=== PATIENT | male | born 1945 | race Caucasian/White ===

== ENCOUNTER 2020-09-11 05:20 | Day surgery (SDC) | payer MEDICARE, BC ==
[2020-09-11] MEDS ORDERED: Midazolam 1 MG/ML 2 ML SDV IV ONE ×3 (05:21→06:35)
[2020-09-11] MEDS ORDERED: fentaNYL 100 MCG/2 ML SDV IV ONE ×3 (05:21→06:34)
[2020-09-11] MEDS ORDERED: Sodium Chloride 0.9% 10 ML Syringe FLUSH PRN (06:00)
[2020-09-11] MEDS ORDERED: Dextrose 5%-0.45% NaCl 1,000 ML IV SCH (06:00)
[2020-09-11] MEDS ORDERED: Midazolam 1 MG/ML 2 ML SDV ONE (06:00)
[2020-09-11] MEDS ORDERED: fentaNYL 100 MCG/2 ML SDV ONE (06:00)
--- NOTE | 2020-09-11 07:18 | OR ---
DATE: 09/11/2020 PROCEDURE: Esophagogastroduodenoscopy and multiple pinch biopsies. INSTRUMENT USED: [id number] Olympus video panendoscope. PREMEDICATIONS: No oral or topical anesthesia used. Fentanyl 100 mcg intravenous, Versed 2 mg intravenous. Nasal O2 cannula. The procedure was done under pulse oximetry, BP recording, and cardiac monitor technician. INDICATIONS: The patient with longstanding heartburn, persistent in nature, on long-term PPI, has been taking NSAIDs now and then. Esophagogastroduodenoscopy is performed for detection of any active erosive lesions, Way esophagus and/or malignancy also under consideration, H pylori status to be determined, endoscopic hemostasis therapy if needed. DESCRIPTION OF PROCEDURE: The scope was passed with ease. Adequate visualization of the esophagus was made from proximal to distal areas. No upper esophageal lesions identified. No distal esophageal stricture. No uphill or downhill esophageal varices. No Gemini-Amato tear. No evidence of erosive esophagitis by [place] criteria. No esophageal polyp or tumor mass identified. Z-line was seen at around 40 cm distal to the oral verge. Gastric fundus examination by retroflexion showed multiple diminutive benign-appearing polyps. No proximal gastric varices noted. No gastric ulcer, malignant mass, or vascular ectasia identified. Few scattered gastric antral erosions were noted without bleeding from them. Duodenal bulb showed no ulcer. Visualized second part of the duodenum is unremarkable. Multiple pinch biopsies were obtained from the gastric antrum and proximal body and sent for PyloriTek test for H pylori, and if negative in an hour, the tissue is to be sent for histopathology. No bleeding was noted from any of the visualized areas at the completion of examination. Photographs were taken of the duodenal bulb, gastric antrum, fundus, and distal esophagus. IMPRESSION: 1. Gastric antral erosions. 2. Diminutive gastric fundus polyps. The patient tolerated the procedure well. [facility] /[id number]
== END 2020-09-11 08:35 | disposition home or self-care (01) ==
LOC: DL.ENDO 05:20
PROVIDERS: ATTEND Internal Medicine Gastroenterology
DX: K31.89 Other diseases of stomach and duodenum (principal); E78.00 Pure hypercholesterolemia, unspecified; N40.0 Benign prostatic hyperplasia without lower urinary tract symptoms; E78.5 Hyperlipidemia, unspecified; Z86.010 Personal history of colon polyps; Z91.09 Other allergy status, other than to drugs and biological substances; Z87.19 Personal history of other diseases of the digestive system; Z98.890 Other specified postprocedural states
CPT/HCPCS: 43239; 87077; 88305; 88342; J2250; J3010; J7042

== ENCOUNTER 2020-09-19 05:23 | Day surgery (SDC) | payer MEDICARE, BC ==
[2020-09-19] MEDS ORDERED: fentaNYL 100 MCG/2 ML SDV IV ONE ×3 (05:24→06:35)
[2020-09-19] MEDS ORDERED: Midazolam 1 MG/ML 2 ML SDV IV ONE ×6 (05:24→06:47)
[2020-09-19] MEDS ORDERED: Sodium Chloride 0.9% 10 ML Syringe FLUSH PRN (06:00)
[2020-09-19] MEDS ORDERED: Dextrose 5%-0.45% NaCl 1,000 ML IV SCH (06:00)
[2020-09-19] MEDS ORDERED: Midazolam 1 MG/ML 2 ML SDV ONE (06:13)
[2020-09-19] MEDS ORDERED: fentaNYL 100 MCG/2 ML SDV ONE (06:14)
--- NOTE | 2020-09-19 07:41 | OR ---
DATE: 09/19/2020 PROCEDURES: Total colonoscopy and cold snare polypectomy. INSTRUMENT USED: [id number] Olympus videocolonoscope. PREMEDICATIONS: Fentanyl 100 mcg intravenous, Versed 3.5 mg intravenous, and nasal O2 cannula. The procedure was done under pulse oximetry, BP recording, and [employer] pe teacher. INDICATION: The patient with previous colonic polyps. Surveillance colonoscopic examination is done for detection of any polypoid lesions and removal, endoscopic hemostasis therapy if needed. DESCRIPTION OF PROCEDURE: Initial rectal exam was unremarkable. Rigid anoscopy was normal. The colonoscope was passed with ease. Extensive diverticula were noted in the colon, more so left colon, along with deformity. The scope was passed with ease up to the ileocecal area. Photographs were taken of the cecum, showing a diminutive benign-appearing polyp. Cold snare polypectomy was done; the tissue was retrieved and sent for histopathology. No bleeding was noted from any of the visualized areas at the commencement of the examination. The bowel preparation was found to be adequate, Krum scale 2 in all the regions, total #6, no stricture, no vascular ectasia. No large isolated ulcerations were seen. No evidence of diffuse inflammatory bowel disease in the form of friability, contact bleeding, or ulcerations. Probing the proximal sides of folds and flexures using adequate distention and clearing up the stool material, withdrawal of the scope was made, [id number] time over 6 minutes. No bleeding was noted from any of the visualized areas at the completion of the examination. IMPRESSION: 1. Diverticulosis. 2. Diminutive cecal polyp. CONDITION: The patient tolerated the procedure well. [facility] /[id number]
== END 2020-09-19 09:08 | disposition home or self-care (01) ==
LOC: DL.ENDO 05:23
PROVIDERS: ATTEND Internal Medicine Gastroenterology
DX: Z12.11 Encounter for screening for malignant neoplasm of colon (principal); D12.0 Benign neoplasm of cecum; K57.30 Diverticulosis of large intestine without perforation or abscess without bleeding; K21.9 Gastro-esophageal reflux disease without esophagitis; E78.00 Pure hypercholesterolemia, unspecified; N40.0 Benign prostatic hyperplasia without lower urinary tract symptoms; Z88.8 Allergy status to other drugs, medicaments and biological substances; Z86.010 Personal history of colon polyps; Z98.890 Other specified postprocedural states
CPT/HCPCS: 45385; J2250; J3010; J7042

== ENCOUNTER 2020-12-03 08:28 | Emergency (ER) | payer MEDICARE, BC ==
[2020-12-03] MEDS ORDERED: Lactated Ringers 1,000 ML IV ONE (09:12)
[2020-12-03] MEDS ORDERED: Sodium Chloride 0.9% 10 ML Syringe FLUSH PRN (09:12)
[2020-12-03 09:55] LABS: ANION GAP 13.1 mEq/L (7-13); CHLORIDE,CL 104 mmol/L (98-107); SODIUM,NA 142 mmol/L (136-145)
--- NOTE | 2020-12-03 11:21 | EDM.PDOC ---
ED HPI GENERAL MEDICAL PROBLEM - General Chief Complaint: Syncope Stated Complaint: DIZZY Time Seen by Provider: 12/03/20 09:00 - History of Present Illness INITIAL COMMENTS - FREE TEXT/NARRATIVE: Maverick is a 75-year-old man who developed significant dizziness this morning. He states this occurred last night when he was walking around his house, and again this morning. The dizziness did not occur when he first stood up, but a fter about 30 seconds of him walking around. He states he does not go away fairly quickly, can last several minutes. He had no really other associated symptoms, no chest pain or palpitations, no headache, no nausea or vomiting. He has had no vision changes with this. He reports this has happened previously, from doing a chart review, it looks like he had a bradycardic episode several months ago when he was having a colonoscopy. He has been told previously that he has a "low heart rate". He is not taking any kind of inotropic or chronotropic medication for his heart - Related Data Allergies Allergy/AdvReac Type Severity Reaction Status Date / Time rosuvastatin [From Crestor] Allergy Other Verified 12/03/20 08:49 Home Meds: Home Meds Acetaminophen 500 mg PO DAILY PRN 12/29/18 [History] Mometasone Furoate [Elocon] 1 applic TOP ASDIRECTED 12/29/18 [History] Multivitamin [Multi-Vitamin Daily] 1 tab PO DAILY 12/29/18 [History] Omeprazole 20 mg PO DAILY 12/29/18 [History] Tamsulosin [Flomax] 0.4 mg PO .EVENING 12/29/18 [History] atorvaSTATin [Lipitor] 10 mg PO DAILY 09/08/20 [History] Naproxen Sodium [Aleve] 220 mg PO DAILY 09/11/20 [History] diphenhydrAMINE HCL [Allergy Relief] 25 mg PO DAILY 09/11/20 [History] guaiFENesin [Guaifenesin] 400 mg PO DAILY 09/11/20 [History] Ondansetron [Ondansetron ODT] 4 mg PO Q8H PRN #21 tab.rapdis 12/03/20 [Rx] Past Medical History HEENT History: Reports: Hard of Hearing, Other (See Below) Other HEENT History: SINUS CONGESTION Cardiovascular History: Reports: High Cholesterol, Other (See Below) Other Cardiovascular History: Per patient, he is normally bradycardic Respiratory History: Reports: None Gastrointestinal History: Reports: GERD Genitourinary History: Reports: BPH Musculoskeletal History: Reports: Fracture, Osteoarthritis Other Musculoskeletal History: HX OF CLOSED FRACTURE OF RIGHT THUMB. PES PLANUS Neurological History: Reports: None Psychiatric History: Reports: None Endocrine/Metabolic History: Reports: None Hematologic History: Reports: None Immunologic History: Reports: None Oncologic (Cancer) History: Reports: None Dermatologic History: Reports: Other (See Below) Other Dermatologic History: HX OF LIPOMA OF SKIN BACK OF NECK - Infectious Disease History Infectious Disease History: Reports: Chicken Pox, Measles - Past Surgical History Head Surgeries/Procedures: Reports: None HEENT Surgical History: Reports: Cataract Surgery Cardiovascular Surgical History: Reports: Other (See Below) Other Cardiovascular Surgeries/Procedures: HX OF CARDIAC CATHETERIZATION Respiratory Surgical History: Reports: None GI Surgical History: Reports: Colonoscopy, EGD, Hernia, Inguinal, Other (See Below) Other GI Surgeries/Procedures: HX OF RIGHT INGUINAL HERNIA REPAIR Male Surgical History: Reports: Vasectomy Endocrine Surgical History: Reports: None Neurological Surgical History: Reports: None Musculoskeletal Surgical History: Reports: Knee Replacement, Other (See Below) Other Musculoskeletal Surgeries/Procedures:: fx L) heel Oncologic Surgical History: Reports: None Dermatological Surgical History: Reports: None Social & Family History - Family History Family Medical History: No Pertinent Family History - Tobacco Use Tobacco Use Status *Q: Never Tobacco User Second Hand Smoke Exposure: No - Caffeine Use Caffeine Use: Reports: Coffee Other Caffeine Use: 2 CUP OF COFFEE A DAY - Recreational Drug Use Recreational Drug Use: No ED ROS GENERAL - Review of Systems Review Of Systems: Comprehensive ROS is negative, except as noted in HPI. - Physical Exam Exam: See Below Text/Narrative:: General: Maverick is a 75-year-old man in no acute distress Oropharynx is clear, mucous membranes are moist Heart: Regular rate and rhythm, no murmurs Lungs: Clear to auscultation throughout #1 Interpretation EKG Date: 12/03/20 Rhythm: Other (Sinus bradycardia) [place]: Normal P-Wave: Present QRS: Normal ST-T: Normal QT: Normal EKG Interpretation Comments: Sinus bradycardia, no ST to T changes Course - Vital Signs Last Recorded V/S: Last Vital Signs Temp 97.6 F 12/03/20 08:50 Pulse 48 L 12/03/20 08:50 Resp 16 12/03/20 08:50 BP 151/99 H 12/03/20 08:50 Pulse Ox 95 12/03/20 08:50 Orthostatic Blood Pressure [ 139/94 Standing] Orthostatic Blood Pressure [ 155/86 Sitting] Orthostatic Blood Pressure [ 140/83 Supine] - Orders/Labs/Meds Labs: Laboratory Tests 12/03/20 12/03/20 Range/Units 09:24 09:24 WBC 4.7 L (5.0-10.0) 10^3/uL RBC 4.63 (4.6-6.2) 10^6/uL Hgb 14.2 (14.0-18.0) g/dL Hct 40.9 (40.0-54.0) % MCV 88.3 (80-100) fL MCH 30.7 (27.0-34.0) pg MCHC 34.7 (33.0-35.0) g/dL Plt Count 190 (150-450) 10^3/uL Neut % (Auto) 65.2 (42.2-75.2) % Lymph % (Auto) 22.3 (20.5-50.1) % [place] % (Auto) 10.0 H (2-8) % Eos % (Auto) 2.1 (1.0-3.0) % Baso % (Auto) 0.4 (0.0-1.0) % Sodium 142 (136-145) mmol/L Potassium 4.1 (3.5-5.1) mmol/L Chloride 104 (98-107) mmol/L Carbon Dioxide 29 (21-32) mmol/L Anion Gap 13.1 H (7-13) mEq/L BUN 24 H (7-18) mg/dL Creatinine 1.01 (0.70-1.30) mg/dL Est Cr Clr Drug Dosing 62.22 mL/min Estimated GFR (MDRD) > 60 BUN/Creatinine Ratio 23.8 (No establ ref range) Glucose 102 H (70-99) mg/dL Calcium 8.8 (8.5-10.1) mg/dL Total Bilirubin 0.9 (0.2-1.0) mg/dL AST 33 (15-37) U/L ALT 50 (16-63) U/L Alkaline Phosphatase 90 (46-116) U/L Troponin I High Sens 10 (<=76) pg/mL Total Protein 6.5 (6.4-8.2) g/dL Albumin 3.8 (3.4-5.0) g/dL Globulin 2.7 Albumin/Globulin Ratio 1.4 Meds: Medications Discontinued Medications Generic Name Dose Route Start Last Admin Trade Name Freq PRN Reason Stop Dose Admin Lactated Ringer's 1,000 mls @ 999 mls/hr 12/03/20 09:12 12/03/20 09:27 Ringers, Lactated IV 12/03/20 10:12 999 mls/hr .BOLUS ONE Administration Sodium Chloride 10 ml 12/03/20 09:12 12/03/20 09:27 Sodium Chloride 0.9% 10 Ml Syringe FLUSH 10 ml ASDIRECTED PRN Administration Keep Vein Open Departure - Departure Time of Disposition: 11:19 Disposition: Home, Self-Care 01 Clinical Impression: Bradycardia - Discharge Information *PRESCRIPTION DRUG MONITORING PROGRAM REVIEWED*: Not Applicable *COPY OF PRESCRIPTION DRUG MONITORING REPORT IN PATIENT MAME: Not Applicable Prescriptions: Ondansetron [Ondansetron ODT] 4 mg PO Q8H PRN #21 tab.rapdis PRN Reason: Nausea Instructions: Bradycardia, Adult Referrals: Andi James MD [Physician] - Forms: ED Department Discharge Sepsis Event Note (ED) - Evaluation Sepsis Screening Result: No Definite Risk - Problem List & Annotations (1) Bradycardia SNOMED Code(s): 33890747 Code(s): R00.1 - BRADYCARDIA, UNSPECIFIED Status: Acute - Problem List Review Problem List Initiated/Reviewed/Updated: Yes - Assessment/Plan Assessment:: 1. Recurrent bradycardia, with intermittent symptoms. No signs of tachybradycardia syndrome Plan: 1. I discussed his case with the research assoc on-call at [facility] in [place]. The recommendation was to have him wear some kind of Holter monitor for the next 2 to 3 weeks, and have an appointment scheduled with cardiology by his primary provider.
== END 2020-12-03 12:21 | disposition home or self-care (01) ==
LOC: DL.ED 08:28
DX: R00.1 Bradycardia, unspecified (principal); E78.00 Pure hypercholesterolemia, unspecified; K21.9 Gastro-esophageal reflux disease without esophagitis; Z88.8 Allergy status to other drugs, medicaments and biological substances; Z79.899 Other long term (current) drug therapy
CPT/HCPCS: 36415; 80053; 84484; 85025; 93005; 93010; 99283; 99284-25; J7120